=== PATIENT | male | born 1995 | race Caucasian/White ===

== ENCOUNTER 2018-06-18 10:34 | Inpatient (IN) | payer BC ==
[2018-06-18 11:10] LABS: #Lymphocytes 0.8 thou/uL (1.20-3.40); #Monocytes 0.7 thou/uL (0.11-0.59); #Neutrophils 9.3 thou/uL (1.40-6.50); %Basophils 0.2 % (0.0-1.0); %Eosinophils 0.3 % (0.0-10.0); %Lymphocytes 7.6 % (21.0-51.0); %Monocytes 6.3 % (0.0-10.0); %Neutrophils 85.6 % (42.0-75.0); Hemoglobin 15.6 g/dL (14.0-18.0); Mean Corpuscular HGB CONC 33.6 g/dL (32.0-36.0); Mean Corpuscular Volume 92.3 fL (78.0-98.0); Mean Platelet Volume 7.9 fL (7.4-10.4); Platelet Count 215 thou/uL (130-400); RBC Distribution Width 11.2 % (11.5-14.5); Red Blood Cell (RBC) Count 5.05 mill/uL (4.70-6.10); White Blood Cell (WBC) Count 10.9 thou/uL (4.8-10.8)
[2018-06-18 11:37] LABS: ALT (SGPT) 10 U/L (8-55); AST (SGOT) 15 U/L (5-34); Albumin 4.8 g/dL (3.5-5.0); Alkaline Phosphatase 90 U/L (40-150); Anion Gap 12 mmol/L (10-20); BUN (Urea Nitrogen) 15 mg/dL (8.9-20.6); Bilirubin, Total 0.7 mg/dL (0.2-1.2); Calc. Creatinine Clearance 0 mL/min (70-130); Carbon Dioxide 27 mmol/L (22-29); Chloride 101 mmol/L (98-107); Estimated GFR-MDRD 77; Globulin 3.1 g/dL (2.4-3.5); Glucose 103 mg/dL (70-105); Lipase 9 U/L (8-78); Protein, Total 7.9 g/dL (6.0-8.3); Sodium 136 mmol/L (136-145)
[2018-06-18 13:11] LABS: Bilirubin Negative (Negative); Blood, Urine Negative (Negative); Clarity CLEAR (Clear); Glucose, Urine (Dipstick) Negative (Negative); Leukocyte Negative (Negative); Nitrite Negative (Negative); Protein, Urine (Dipstick) Negative (Neg-Trace); Specific Gravity, Urine 1.011 (1.002-1.036); Urobilinogen 0.2 mg/dL (0.2-1.0)
--- NOTE | 2018-06-18 14:02 | CT ---
CT ABDOMEN WITH CONTRAST CT PELVIS WITH CONTRAST History: Right lower quadrant pain. Evaluate for appendicitis. Comparison: None. Technique: Abdomen and pelvic CT are performed with IV and oral contrast. Coronal reformatted images are submitted for interpretation. FINDINGS: ABDOMEN CT: Lung bases are clear. Normal height side. No significant pericardial fluid. The descending thoracic a mary and abdominal aorta have a normal caliber. No periaortic fat stranding. Gallbladder is unremarkable. Portal vein is patent. Liver, spleen, pancreas, and adrenal glands have appropriate enhancement. Symmetric enhancement of the kidneys. No obstructed uropathy. No dominant mass, lymphadenopathy, free air or free fluid. Gastric mucosa, duodenum, and multiple normal caliber small bowel loops. Ileocecal junction is normal . Gas and fecal material in a nondistended, nondilated colon. Eminating from the cecal apex is a dila madyson tubular structure with adjacent fat stranding and small amount of fluid. Hyperdense material in t he tubular structure compatible with appendicolith. Overall diameter is 1.2 cm. No evidence of perfor ation or abscess. PELVIC CT: There is free fluid in the pelvis. No mass, lymphadenopathy, or free air. Urinary bladder is unremark able. No lytic or blastic lesions of osseous structures. IMPRESSION: 1. Appendicitis without evidence of abscess or perforation. Results of study discussed with Dr. Snell no 9-25-18 at 1:29 p.m. POS: [facility]
[2018-06-18] MEDS ORDERED: metroNIDAZOLE 500 MG/100 ML BAG ONE (14:44)
[2018-06-18] MEDS ORDERED: metroNIDAZOLE 500 MG in Premix Bag 1 BAG IVPB SCH (15:00)
[2018-06-18] MEDS ORDERED: Clindamycin/D5W 900 MG in Premix Bag 1 BAG IVPB SCH (15:00)
[2018-06-18] MEDS ORDERED: Morphine 4 MG/ML VIAL ONE (15:28)
[2018-06-18] MEDS ORDERED: Fentanyl 100 MCG/2 ML VIAL ONE ×3 (19:42→20:36)
[2018-06-18] MEDS ORDERED: Midazolam HCl 2 mg/2 ml Vial ONE (20:04)
[2018-06-18] MEDS ORDERED: Bupivacaine/Epinephrine 0.25% 30 ML VIAL ONE (20:08)
--- NOTE | 2018-06-19 01:09 | HP ---
CHIEF COMPLAINT: Right lower quadrant pain. HISTORY OF PRESENT ILLNESS: This is a 22-year-old male who presents with a history of pain in his ri t lower quadrant, described as 8/10 and sharp, associated with nausea, no vomiting, no anorexia, no fever or chills. Yesterday, he had bloating. He has never had this pain before. Denies history of inflammatory bowel disease or Crohn's. PAST MEDICAL HISTORY: He denies. PAST SURGICAL HISTORY: Denies. MEDICINES: None. ALLERGIES: PENICILLIN. SOCIAL HISTORY: No smoking, alcohol or other drugs. He is a student. REVIEW OF SYSTEMS: Ten-system review of systems otherwise negative unless described above. PHYSICAL EXAMINATION: HEENT: Sclerae are anicteric. Oropharynx is clear. NECK: No lymphadenopathy. CHEST: Clear. HEART: Regular rate and rhythm. ABDOMEN: Soft, tender right lower quadrant, localized guarding, no rebound, no abdominal hernias. EXTREMITIES: No ischemia or edema to extremities. CT shows acute appendicitis. ASSESSMENT: Acute appendicitis. PLAN: Laparoscopic appendectomy. Risks, benefits, alternatives discussed. He gives consent. We wi ll do this today.
--- NOTE | 2018-06-19 01:18 | OP ---
DATE OF PROCEDURE: 06/18/2018 PREOPERATIVE DIAGNOSIS: Acute appendicitis. POSTOPERATIVE DIAGNOSIS: Acute appendicitis. PROCEDURE: Laparoscopic appendectomy. SURGEON: Andrzej Melgar M.D. ANESTHESIA: General. ESTIMATED BLOOD LOSS: Minimal. COMPLICATIONS: None. SPECIMEN: Appendix. FINDINGS: Appendicitis. TECHNIQUE: The patient was taken to the operating room and placed supine on the table. After genera l anesthetic was obtained, a Cox was placed. The abdomen shaved, prepped, and draped in a sterile fashion. Curved incision made below the umbilicus. Cautery was used to dissect down to and score th e fascia. Abdominal cavity entered bluntly using a Nancy clamp. Holding stitch of PDS was on each s messi of the fascia. Msihra trocar was placed. High-flow pneumoperitoneum was obtained. Left lower q uadrant 5-mm port and suprapubic 5 mm port were all placed under direct visualization. Cecum is roll ed to reveal acute appendicitis. A small window was made at the base of the appendix and mesoappendi x. Laparoscopic stapler fired across the base of the appendix. A vascular reload fired across the m esoappendix. Appendix placed in an Endo catch bag and brought out through the Mishra. A bleeder on the staple line was clipped using laparoscopic clip. Right lower quadrant and pelvis was irrigated u sing sterile solution until returns are clear. No evidence of perforation, no damage to any intraabd ominal structures. All port sites were infiltrated using local anesthetic. All ports were removed u nder camera visualization. Pneumoperitoneum was let down. PDS was used to close the fascial defect below the umbilicus. All incisions were irrigated and closed using 4-0 Monocryl and Dermabond. The patient went to recovery in stable condition. All instrument counts, needle counts, lap counts were correct.
== END 2018-06-18 22:45 | disposition home or self-care (01) | DRG 343 ==
LOC: ERS 10:34 → ERHOLD 14:40 → SURG A 20:01
PROVIDERS: ADMIT Surgery; ATTEND Surgery
PROC: 0DTJ4ZZ Resection of Appendix, Percutaneous Endoscopic Approach (ICD-10-PCS; principal; 2018-06-18)
DX: K35.80 Unspecified acute appendicitis (principal); Z88.0 Allergy status to penicillin
CPT/HCPCS: 74177; 80053; 81003; 83690; 85025; J0131; J0744; J2250; J2270; J3010